=== PATIENT | male | born 1960 | race Caucasian/White ===

== ENCOUNTER 2021-02-09 17:26 | Inpatient (IN) | payer BC ==
[~2021-02-09] VITALS: Ht 175.3 cm; Wt 102.5 kg
[~2021-02-09 17:26] MED LIST: AVODART 0.5MG0.5 MG PO; BETASERON0.3 MG SC; CELLCEPT 250MG250 MG PO; CELLCEPT PO; CEPHALEXIN500 M1; CIALIS10 MG; CIPRO 500MG TA500 MG PO; CLARITIN 1010 MG/TAB; CLEOCIN HC150 MG/CAP PO; CORGARD 40M40 MG/TAB PO; DETROL PO; DICLOFENAC PO; FLOMAX PO; NEURONTIN300 MG/CAP PO; NORCO 325 MG-51 TAB PO; REBIF; REBIF44 MCG/0.5 SC; TYLENOL W/COD1 UDTAB; VOLTAREN 75 DR75 MG; ZOLOFT PO
[2021-02-09 18:47] LABS: COLLECTION METHOD CLEAN CATCH
[2021-02-09 18:51] LABS: HEMOGLOBIN 17.9 g/dl (13.5-18.0); MEAN CELL VOLUME 97 fl (80.0-100.0); MEAN CORPUSCULAR HEMOGLOBIN 34 pg (27.0-31.0); MEAN CORPUSCULAR HGB CONC 34 g/dl (33.0-37.0); MEAN PLATELET VOLUME 10.7 fl (7.4-10.4); PLATELET COUNT 155 K/mm3 (130-400); RED BLOOD COUNT 5.35 M/mm3 (4.20-5.60); REDCELL DISTRIBUTION WIDTH-CV 13.7 % (11.5-14.5)
[2021-02-09 18:55] LABS: HEMATOCRIT 52.1 % (42.0-52.0)
[2021-02-09 18:55] LABS: PH 6 (5-8); SQUAMOUS EPITHELIAL None Seen /hpf; URINE APPEARANCE Clear; URINE BACTERIA None Seen /hpf; URINE BILIRUBIN Negative (NEGATIVE); URINE BLOOD Negative (NEGATIVE); URINE COLOR Yellow; URINE GLUCOSE Negative (NEGATIVE); URINE KETONE Negative (NEGATIVE); URINE LEUKOCYTE ESTERASE Negative (NEGATIVE); URINE NITRATE Negative (NEGATIVE); URINE PROTEIN(semi-quant) Negative (NEGATIVE); URINE RBC 0-2 /hpf; URINE UROBILINOGEN Negative (NEGATIVE)
[2021-02-09 19:08] LABS: ALBUMIN 3.8 gm/dL (3.5-5.0); BILIRUBIN,TOTAL 0.6 mg/dL (0.0-1.0); C-REACTIVE PROTEIN 6.6 mg/dL (0.0-0.9); CALCIUM 8.5 mg/dL (8.4-10.2); CREATININE, serum 0.98 (0.66-1.25); POTASSIUM 3.9 mmol/L (3.4-5.0); TOTAL PROTEIN 6.6 gm/dL (6.4-8.2)
[2021-02-09] MEDS ORDERED: PRINIVIL20 MG PO (19:30)
[2021-02-09] MEDS ORDERED: CIALIS5 MG PO (19:31)
[2021-02-09] MEDS ORDERED: CELLCEPT 250MG250 MG PO (19:31)
[2021-02-09] MEDS ORDERED: CEPHALEXIN500 M1 PO (19:32)
[2021-02-09] MEDS ORDERED: ZOLOFT 50MG50 MG PO (19:32)
[2021-02-09] MEDS ORDERED: DETROL LA4 PO (19:33)
[2021-02-09 19:36] LABS: EOSINOPHIL 6 % (0-4); LYMPHOCYTE 11 % (20.0-51.0); NEUTROPHILS 72 % (42.0-75.2); PLATELET ESTIMATE NORMAL (NORMAL)
[2021-02-09] MEDS ORDERED: [UNRECOGNIZED DRUG - OTHER] SQ (19:49)
[2021-02-09] MEDS ORDERED: PRINIVIL40 MG PO (19:49)
[2021-02-09] MEDS ORDERED: CORGARD40 MG PO (19:50)
[2021-02-09] MEDS ORDERED: NEURONTIN300 MG/CAP PO (19:50)
[2021-02-10] VITALS (9 sets, daily range): BP systolic 97–162; BP diastolic 59–91; PULSE 70–92; TEMP 98.7–103.1
--- NOTE | 2021-02-10 04:06 | NUR ---
Took over care for patient at approximately 2230. Patient received PRN [place] once for pain to left leg. Patient also received Acetaminophen for fever over 102.
[2021-02-10 09:14] LABS: HEMATOCRIT 49.5 % (42.0-52.0); HEMOGLOBIN 16.8 g/dl (13.5-18.0); MEAN CELL VOLUME 99 fl (80.0-100.0); MEAN CORPUSCULAR HEMOGLOBIN 34 pg (27.0-31.0); MEAN CORPUSCULAR HGB CONC 34 g/dl (33.0-37.0); MEAN PLATELET VOLUME 11.4 fl (7.4-10.4); PLATELET COUNT 139 K/mm3 (130-400); RED BLOOD COUNT 4.98 M/mm3 (4.20-5.60); REDCELL DISTRIBUTION WIDTH-CV 13.9 % (11.5-14.5)
[2021-02-10 09:25] LABS: CALCIUM 7.7 mg/dL (8.4-10.2); CREATININE, serum 0.98 (0.66-1.25); POTASSIUM 4.1 mmol/L (3.4-5.0)
[2021-02-10 10:26] LABS: BAND 10 % (0-10); EOSINOPHIL 6 % (0-4); LYMPHOCYTE 4 % (20.0-51.0); NEUTROPHILS 73 % (42.0-75.2); PLATELET ESTIMATE NORMAL (NORMAL)
--- NOTE | 2021-02-10 11:30 | NUR ---
Patient has been doing ok this morning. He continues to spike temperatures. The medications don't seem to be helping. Let Dr Domínguez know. Placed ice packs to his left thigh. Encouraged him to keep a sheet on, he keeps adding blankets on. He is eating and drinking without issues. Having pain when ambulating to left thigh but minimal pain when laying in bed. No complaints of nausea. Left thigh is red, swollen and warm to touch. No drainage noted. No other changes at this time. Call kerry mcdowell.
--- NOTE | 2021-02-10 18:00 | NUR ---
Patient is spiking a temperature. His tempt has been staying steady above 102. It is now 103.1. Notified hospitalist. Consult called to Dr Villatoro. Got an order for ibuprofen. Encouraged patient to do deep breathing exercises. Placed new ice to left thigh. Patient had questions about his antibiotics, answered the quesitons I could. Explained giving ibuprofen instead of tylenol. Patient verbalized understanding. No other changes at this time. Call light within reach.
--- NOTE | 2021-02-10 21:45 | NUR ---
PATIENT IS CALM IN BED.DENIES PAIN.DUE MEDS GIVEN.IVFS IN GOOD PROGRESS.PATIENT HAS LOOSE STOOLS.NO OTHE NEEDS AT THIS TIME.
[2021-02-11] VITALS (7 sets, daily range): BP systolic 122–140; BP diastolic 71–97; PULSE 70–78; TEMP 98.4–101.2
--- NOTE | 2021-02-11 05:57 | NUR ---
PATIENT HAD A CALM NIGHT.TEMPERATURE THIS MORN 99.2F.DENIES PAIN.IVFS CONTINUED WITH ANTIBIOTICS.NO OTHER NEEDS ST THIS TIME.
[2021-02-11 07:05] LABS: HEMATOCRIT 46.2 % (42.0-52.0); HEMOGLOBIN 15.6 g/dl (13.5-18.0); MEAN CELL VOLUME 100 fl (80.0-100.0); MEAN CORPUSCULAR HEMOGLOBIN 34 pg (27.0-31.0); MEAN CORPUSCULAR HGB CONC 34 g/dl (33.0-37.0); MEAN PLATELET VOLUME 11.4 fl (7.4-10.4); PLATELET COUNT 122 K/mm3 (130-400); RED BLOOD COUNT 4.63 M/mm3 (4.20-5.60); REDCELL DISTRIBUTION WIDTH-CV 13.9 % (11.5-14.5)
[2021-02-11 07:08] LABS: CALCIUM 7.6 mg/dL (8.4-10.2); CREATININE, serum 0.98 (0.66-1.25); POTASSIUM 3.8 mmol/L (3.4-5.0)
[2021-02-11 07:57] LABS: BAND 14 % (0-10); EOSINOPHIL 5 % (0-4); LYMPHOCYTE 6 % (20.0-51.0); NEUTROPHILS 68 % (42.0-75.2)
[2021-02-11 07:58] LABS: PLATELET ESTIMATE DECREASED (NORMAL)
--- NOTE | 2021-02-11 08:33 | NUR ---
Patient in bed resting. Alert and oriented x 3. Assessment complete. Denies pain at this time. IV fluids and antibiotics infusing per orders. Redness and warmth to left thigh noted. Patient states no difference from previous days. Denies further needs at this time.
[2021-02-11 10:12] LABS: PATHOLOGY DIFF REVIEW OK +
--- NOTE | 2021-02-11 13:40 | NUR ---
Initial visit; Patient thanked Patient Safety Manager for looking in on him and offering God's blessings and to keep him in her prayers.
--- NOTE | 2021-02-11 14:35 | NUR ---
public health social worker met with patient to discuss discharge plan. Patient lives at home with (Hanna [phone]). Patient states he is independent with his activities of daily living. Patient states his primary care is Dr. Stern and reports no trouble affording medications. Patient states he believes he has made advanced directives with . Patient plans to discharge home. *Discharge plan: Home with spouse*
--- NOTE | 2021-02-11 18:16 | NUR ---
Patient doing well throughout the day. Has been up ambulating in room. Spouse at bedside throughout the day. Denies pain at this time. Motrin given for temp around noon. Denies further needs at this time. Fluids and antibiotics infusing per orders. 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
--- NOTE | 2021-02-11 19:52 | NUR ---
PATIENT IN BED RESTING. ON NO APPARENT DISTRESS. PATIENT DENIES ANY PAIN. CALL IN REACH ADVICE TO CALL WITH ANY ISSUES. WILL CONTINUE TO MONITOR
[2021-02-12 00:41] VITALS: BP 140/83; PULSE 77; TEMP 101.2
--- NOTE | 2021-02-12 01:10 | NUR ---
PATIENT TEMP 101.2 PA HOSPITALIST MADE AWARE. TYLENOL 650 MG GIVEN, ENCOURAGE FLUID. WILL CONTINUE TO MONITOR.
[2021-02-12 04:05] VITALS: BP 128/78; PULSE 68; TEMP 98.1
[2021-02-12 07:10] LABS: HEMATOCRIT 42.8 % (42.0-52.0); HEMOGLOBIN 14.3 g/dl (13.5-18.0); MEAN CELL VOLUME 99 fl (80.0-100.0); MEAN CORPUSCULAR HEMOGLOBIN 33 pg (27.0-31.0); MEAN CORPUSCULAR HGB CONC 33 g/dl (33.0-37.0); MEAN PLATELET VOLUME 10.9 fl (7.4-10.4); PLATELET COUNT 140 K/mm3 (130-400); RED BLOOD COUNT 4.33 M/mm3 (4.20-5.60); REDCELL DISTRIBUTION WIDTH-CV 13.6 % (11.5-14.5)
[2021-02-12 07:26] LABS: CALCIUM 7.5 mg/dL (8.4-10.2); CREATININE, serum 0.94 (0.66-1.25); POTASSIUM 3.8 mmol/L (3.4-5.0)
[2021-02-12 07:52] LABS: BAND 14 % (0-10); EOSINOPHIL 2 % (0-4); LYMPHOCYTE 11 % (20.0-51.0); NEUTROPHILS 71 % (42.0-75.2); PLATELET ESTIMATE NORMAL (NORMAL)
[2021-02-12 07:59] LABS: C-REACTIVE PROTEIN 20.6 mg/dL (0.0-0.9)
[2021-02-12 08:18] VITALS: BP 132/76; PULSE 87; TEMP 100.4
--- NOTE | 2021-02-12 08:18 | NUR ---
Paty andrews notified of temp 100.4
--- NOTE | 2021-02-12 08:20 | NUR ---
Patient in bed resting. Alert and oriented x 3. Assessment complete. Motrin given for temp. Increased redness and swelling noted to LLE. Patient states he is feeling sore this morning and having muscle spasms. Patient denies further needs at this time.
[2021-02-12 11:29] VITALS: BP 133/89; PULSE 62; TEMP 97.7
--- NOTE | 2021-02-12 14:48 | NUR ---
Patient back from CT by wheelchair.
[2021-02-12 16:08] VITALS: BP 168/94; PULSE 63; TEMP 99.1
--- NOTE | 2021-02-12 19:10 | NUR ---
Patient doing well, spouse at bedside. Patient states frustration about situation this afternoon. States he feels like if his infection is not progressing and only getting worse. Educated patient on cellulits. Denies additional needs at this time. Reported off to security shift supervisor.
[2021-02-12 20:08] VITALS: BP 163/88; PULSE 75; TEMP 99.6
[2021-02-13] VITALS: BP 149/83; PULSE 72; TEMP 100
[2021-02-13 04:52] VITALS: BP 155/89; PULSE 65; TEMP 98.4
--- NOTE | 2021-02-13 06:30 | NUR ---
Patient and his had a lot of questions at the start of the shift about what can geena done to get him out of here faster. Discussed what has been done for the patient and what is being done for him. Discussed the antibiotics he is taking and explained how cellulitis is different from and abscess. They talked about trying to go to , explained that is something to talk about with the Doctor but that it wouldn't be a transfer unless his condition changed. They verbalized understanding. Patients left thigh continues to be red and swolled, warm to the touch. Offered to get ice to the thight but he did not want it. [place] given once at bedtime. No complaints of nausea. Encouraged patient to elevate his left legs on pillows. No other changes at this time. Call light within reach.
[2021-02-13 07:35] VITALS: BP 138/101; BP 138/81; PULSE 109; PULSE 66; TEMP 98.3; TEMP 98.7
[2021-02-13 08:13] LABS: BASO % 0.2 % (0.0-2.0); EOS # 0.5 (0.0-0.7); EOS % 3.3 % (0-4.0); GRAN # 12.6 (1.4-6.5); GRAN % 84.2 % (42.2-75.2); HEMATOCRIT 42.8 % (42.0-52.0); HEMOGLOBIN 14.7 g/dl (13.5-18.0); LYMPH # 0.6 (1.2-3.4); LYMPH % 3.7 % (20.0-51.0); MEAN CELL VOLUME 99 fl (80.0-100.0); MEAN CORPUSCULAR HEMOGLOBIN 34 pg (27.0-31.0); MEAN CORPUSCULAR HGB CONC 34 g/dl (33.0-37.0); MEAN PLATELET VOLUME 11.3 fl (7.4-10.4); MONO # 1.2 (0.1-0.6); MONO % 7.7 % (1.7-9.3); PLATELET COUNT 171 K/mm3 (130-400); RED BLOOD COUNT 4.34 M/mm3 (4.20-5.60); REDCELL DISTRIBUTION WIDTH-CV 13.6 % (11.5-14.5)
[2021-02-13 08:28] LABS: CALCIUM 7.8 mg/dL (8.4-10.2); CREATININE, serum 0.93 (0.66-1.25); POTASSIUM 3.5 mmol/L (3.4-5.0)
[2021-02-13 12:23] VITALS: BP 156/86; PULSE 66; TEMP 99.4
[2021-02-13 17:13] VITALS: BP 160/80; PULSE 67; TEMP 99.9
[2021-02-13 19:52] VITALS: BP 150/77; PULSE 66; TEMP 99.5
--- NOTE | 2021-02-13 22:00 | NUR ---
Pt has been resting comfortably. Pain rated 5/10. Lortab was given.Will continue to monitor.
[2021-02-14 03:24] VITALS: BP 141/75; PULSE 61; TEMP 98.6
[2021-02-14 07:26] LABS: BASO % 0.3 % (0.0-2.0); EOS # 0.5 (0.0-0.7); EOS % 3.6 % (0-4.0); GRAN # 12.4 (1.4-6.5); GRAN % 84.4 % (42.2-75.2); HEMATOCRIT 43.3 % (42.0-52.0); HEMOGLOBIN 14.6 g/dl (13.5-18.0); LYMPH # 0.5 (1.2-3.4); LYMPH % 3.3 % (20.0-51.0); MEAN CELL VOLUME 98 fl (80.0-100.0); MEAN CORPUSCULAR HEMOGLOBIN 33 pg (27.0-31.0); MEAN CORPUSCULAR HGB CONC 34 g/dl (33.0-37.0); MEAN PLATELET VOLUME 10.7 fl (7.4-10.4); MONO # 1.1 (0.1-0.6); MONO % 7.1 % (1.7-9.3); PLATELET COUNT 215 K/mm3 (130-400); REDCELL DISTRIBUTION WIDTH-CV 13.5 % (11.5-14.5)
[2021-02-14 07:31] LABS: CREATININE, serum 0.94 (0.66-1.25); POTASSIUM 3.8 mmol/L (3.4-5.0)
[2021-02-14 08:25] VITALS: BP 141/92; PULSE 66; TEMP 99.2
--- NOTE | 2021-02-14 08:30 | NUR ---
PATIENT ALERT AND ORIENTED X4. PATIENT SITTING UP IN BED AWAITING BREAKFAST. PATIENT LEFT LEG IS MORE RED AND SWOLLEN THAN YESTERDAY. DOCTORS NOTIFIED AND ANTIBIOTICS CONTINUED PER ORDERS. PATIENT HAS IV TO LEFT HAND AND IS ON CONTACT FOR MRSA. PATIENT DENIES PAIN OR FURTHER NEEDS AT THIS TIME. CALL LIGHT WITHIN REACH. HEAD TO TOE ASSESSMENT COMPLETE.
--- NOTE | 2021-02-14 10:00 | NUR ---
PATIENT HELPED TO SHOWER AND LINENS CHANGED. LEG ELEVATED ON PILLOWS AND ICE PLACED. DOCTORS ROUNDING.
[2021-02-14 12:25] VITALS: BP 159/89; PULSE 64; TEMP 99.3
--- NOTE | 2021-02-14 13:13 | NUR ---
PATIENTS BROUGHT HIM LUNCH.
[2021-02-14 16:55] VITALS: BP 120/79; PULSE 66; TEMP 99.2
--- NOTE | 2021-02-14 18:23 | NUR ---
TO BRING PATIENT DINNER
[2021-02-14 19:43] VITALS: BP 146/78; PULSE 71; TEMP 100
[2021-02-14 23:47] VITALS: BP 150/82; PULSE 71; TEMP 101.6
--- NOTE | 2021-02-15 00:04 | NUR ---
Assessemnt done and completed, alert and oriented ,denies pain. is at the bedside during assessment, Legs is red and swollen. Reported that the redness is getting bigger. At midnihgt patient had a fever of 101.0 Tylenol 325 is givem. Patient complains of being itchy. RN didn't notice it in the 1899 assessment. Patient face is red and his back has rashes that he complained being itchy. Will continue to monitor and will notify the PA Kylah.
[2021-02-15 03:48] VITALS: BP 159/93; PULSE 67; TEMP 98.6
[2021-02-15 06:31] LABS: HEMATOCRIT 45.3 % (42.0-52.0); HEMOGLOBIN 15.5 g/dl (13.5-18.0); MEAN CELL VOLUME 97 fl (80.0-100.0); MEAN CORPUSCULAR HEMOGLOBIN 33 pg (27.0-31.0); MEAN CORPUSCULAR HGB CONC 34 g/dl (33.0-37.0); MEAN PLATELET VOLUME 10.7 fl (7.4-10.4); PLATELET COUNT 254 K/mm3 (130-400); RED BLOOD COUNT 4.68 M/mm3 (4.20-5.60); REDCELL DISTRIBUTION WIDTH-CV 13.4 % (11.5-14.5)
[2021-02-15 06:42] LABS: CALCIUM 8.3 mg/dL (8.4-10.2); CREATININE, serum 0.87 (0.66-1.25); POTASSIUM 3.9 mmol/L (3.4-5.0)
[2021-02-15 08:48] LABS: BAND 11 % (0-10); EOSINOPHIL 3 % (0-4); LYMPHOCYTE 4 % (20.0-51.0); NEUTROPHILS 82 % (42.0-75.2); PLATELET ESTIMATE NORMAL (NORMAL)
[2021-02-15 08:55] VITALS: BP 132/76; PULSE 61; TEMP 97.8
--- NOTE | 2021-02-15 10:52 | NUR ---
Patient to radiology by
[2021-02-15 11:55] VITALS: BP 145/87; PULSE 61; TEMP 97.9
--- NOTE | 2021-02-15 14:32 | NUR ---
Social met with patient follow up on discharge plan. Patient is planning on still returning home and feels comfortable with this plan. * Discharge plan: Home*
[2021-02-15 15:21] VITALS: BP 151/81; PULSE 60; TEMP 97.9
--- NOTE | 2021-02-15 18:47 | NUR ---
Patient doing well throughout the day, states left thigh looks better than previous days. Radiology aspirated fluid from left thigh today. Patient denies pain throughout the day. Has been up independently with steady gait. Showered this afternoon. Patient denies furhter needs at this time. Will report off to gluer machine operator.
[2021-02-15 19:21] VITALS: BP 149/77; PULSE 62; TEMP 97.8
[2021-02-15 23:38] VITALS: BP 142/71; PULSE 94; TEMP 97
--- NOTE | 2021-02-15 23:43 | NUR ---
Patient called me and said that he has generalized itchiness. He had Zozyn hung from previous shift at 1900 that supposed to get done at 2300. When RN checke him he has rashes that looks so red again and he is scratching it. RN stop the Zosyn and Kylah get notified. She said to hold the Zozyn. Benadryl administered. Patient got the melatonin as well. Continue to follow.
[2021-02-16] VITALS (7 sets, daily range): BP systolic 139–183; BP diastolic 71–99; PULSE 50–80; TEMP 97.2–98.7
[2021-02-16 07:00] LABS: HEMATOCRIT 40.5 % (42.0-52.0); HEMOGLOBIN 13.7 g/dl (13.5-18.0); MEAN CELL VOLUME 98 fl (80.0-100.0); MEAN CORPUSCULAR HEMOGLOBIN 33 pg (27.0-31.0); MEAN CORPUSCULAR HGB CONC 34 g/dl (33.0-37.0); MEAN PLATELET VOLUME 10.6 fl (7.4-10.4); PLATELET COUNT 280 K/mm3 (130-400); RED BLOOD COUNT 4.13 M/mm3 (4.20-5.60); REDCELL DISTRIBUTION WIDTH-CV 13.5 % (11.5-14.5)
[2021-02-16 07:11] LABS: CALCIUM 8.3 mg/dL (8.4-10.2); CREATININE, serum 0.92 (0.66-1.25); POTASSIUM 3.8 mmol/L (3.4-5.0)
[2021-02-16 07:40] LABS: BAND 12 % (0-10); EOSINOPHIL 5 % (0-4); LYMPHOCYTE 8 % (20.0-51.0); NEUTROPHILS 70 % (42.0-75.2); PLATELET ESTIMATE NORMAL (NORMAL)
--- NOTE | 2021-02-16 08:00 | NUR ---
Patient sitting up in bed eating breakfast. A&Ox3. VSS. IV CDI. Denies pain, reports some discomfort in left leg. Left upper leg warm to touch, whole leg red. Independent in room. Contact precautions in place. No further needs expressed. Call light within reach
--- NOTE | 2021-02-16 18:17 | NUR ---
Patient had an uneventful day. No reports of pain. Has been ambulating in bed to help with swelling in left leg. Reddness to left leg, left upper leg minimally warm, no pain with palpation. VSS, BP hypertensive, doctor aware. IV CDI. Contact precautions in place. No further needs expressed from the patient. Call light within reach
--- NOTE | 2021-02-16 21:30 | NUR ---
PT INDEPENDENT IN ROOM. HAS EDEMATOUS LEFT LEG FROM HIP TO ANKLE, THIGH BLANCHES AND IS RED/WARM TO TOUCH. PT HAS LFT LEG ELEVATED ON PILLOWS AND BELIEVES THIS HAS HELPED WITH THE SWELLING. TAKES HS MEDS WITHOUT PROBLEM. SL TO LEFT HAND, FLUSHES WELL. HAS A DIFFUSE RASH TO TRUNK, ARMS AND INTO GROIN AND RT UPPER LEG. DENIES NEED FOR ANTI ITCH MED TONIGHT. DENIES PAIN.
--- NOTE | 2021-02-16 23:00 | NUR ---
IV CIPRO CONNECTED AND INFUSING WITHOUT PROBLEM.
--- NOTE | 2021-02-17 01:10 | NUR ---
ANTIBIOTIC COMPLETE, DENIES ITCHING.
[2021-02-17 03:47] VITALS: BP 139/58; PULSE 74; TEMP 98.2
[2021-02-17 06:33] LABS: HEMATOCRIT 42.9 % (42.0-52.0); HEMOGLOBIN 14.5 g/dl (13.5-18.0); MEAN CELL VOLUME 99 fl (80.0-100.0); MEAN CORPUSCULAR HEMOGLOBIN 33 pg (27.0-31.0); MEAN CORPUSCULAR HGB CONC 34 g/dl (33.0-37.0); MEAN PLATELET VOLUME 10.5 fl (7.4-10.4); PLATELET COUNT 323 K/mm3 (130-400); RED BLOOD COUNT 4.35 M/mm3 (4.20-5.60); REDCELL DISTRIBUTION WIDTH-CV 13.7 % (11.5-14.5)
[2021-02-17 06:44] LABS: CALCIUM 8.6 mg/dL (8.4-10.2); CREATININE, serum 1.02 (0.66-1.25); POTASSIUM 4.2 mmol/L (3.4-5.0)
[2021-02-17 07:01] LABS: BAND 5 % (0-10); EOSINOPHIL 4 % (0-4); LYMPHOCYTE 12 % (20.0-51.0); METAMYELOCYTE 1 % (0-0); NEUTROPHILS 73 % (42.0-75.2); PLATELET ESTIMATE NORMAL (NORMAL)
[2021-02-17 07:44] VITALS: BP 142/85; PULSE 56; TEMP 98.1
--- NOTE | 2021-02-17 08:00 | NUR ---
Patient sitting up in the recliner eating breakfast. A&Ox4. VSS. IV CDI. Denies pain and discomfort. Reports that left upper thigh looks like a fluid filled pocket has formed again. Warm to touch. Contact precautions in place. 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 No further needs expressed from the patient. Call light within reach
[2021-02-17 11:33] VITALS: BP 130/79; PULSE 55; TEMP 98.2
[2021-02-17 16:29] VITALS: BP 168/87; PULSE 52; TEMP 98.2
--- NOTE | 2021-02-17 17:48 | NUR ---
Patient had an abcess on left thigh drained by Dr Santa and tolerated well. Pressure dressing applied. CDI. VSS. New IV site started. A&Ox4. Contact precautions in place. No further needs expressed. Call light within reach
[2021-02-17 19:09] VITALS: BP 142/79; PULSE 58; TEMP 98.4
--- NOTE | 2021-02-17 20:39 | NUR ---
Assessment completed, alert and oriented. Denies pain or SOB. Patient just had his dinner done. Sitting in bed comfortably. Has dressing in his left thigh. Redness and swolleniss looks way better than it was. Tender around the puncture site. Has generalized rashes from previous allergic reactions. Denies itchiness. No further complains. Call light is within reach and will continue to follow.
[2021-02-17 23:44] VITALS: BP 131/79; PULSE 56; TEMP 98.2
[2021-02-18 03:38] VITALS: BP 151/85; PULSE 55; TEMP 97.7
[2021-02-18 07:32] VITALS: BP 142/90; PULSE 59; TEMP 98.1
[2021-02-18 08:01] LABS: HEMATOCRIT 45.5 % (42.0-52.0); HEMOGLOBIN 15.3 g/dl (13.5-18.0); MEAN CELL VOLUME 99 fl (80.0-100.0); MEAN CORPUSCULAR HEMOGLOBIN 33 pg (27.0-31.0); MEAN CORPUSCULAR HGB CONC 34 g/dl (33.0-37.0); MEAN PLATELET VOLUME 10.3 fl (7.4-10.4); PLATELET COUNT 348 K/mm3 (130-400); REDCELL DISTRIBUTION WIDTH-CV 13.4 % (11.5-14.5)
[2021-02-18 08:22] LABS: BAND 10 % (0-10); EOSINOPHIL 14 % (0-4); LYMPHOCYTE 10 % (20.0-51.0); METAMYELOCYTE 1 % (0-0); NEUTROPHILS 59 % (42.0-75.2)
[2021-02-18 08:23] LABS: PLATELET ESTIMATE NORMAL (NORMAL)
[2021-02-18 08:39] LABS: CALCIUM 8.6 mg/dL (8.4-10.2); CREATININE, serum 1.08 (0.66-1.25); POTASSIUM 4.3 mmol/L (3.4-5.0)
[2021-02-18] MEDS ORDERED: CIPRO 500MG TA500 MG PO (09:44)
[2021-02-18] MEDS ORDERED: ZYVOX 600MG600 MG PO (09:45)
[2021-02-18] MEDS ORDERED: NORVASC 5MG5 MG/TAB PO (09:46)
[2021-02-18] MEDS ORDERED: NORCO 325 MG-51 TAB PO (09:47)
[2021-02-18 10:50] VITALS: BP 142/85; PULSE 52; TEMP 98.2
--- NOTE | 2021-02-18 11:56 | NUR ---
geothermal sheet metal worker checked in with patient to address any new concerns with going home. present in room. Patient and had no concerns, just questions for nurse. Relayed questions to patients nurse.
--- NOTE | 2021-02-18 15:20 | NUR ---
Patient doing well throughout the day, showered independently this afternoon. Dressing to left thigh changed, packed per Dr agrawal orders. Educated patient on dressing changes. Patient educated on when to call provider and all new medications. Educated on medication safety. All questions answered. Denies furhter needs at this time. INT to RAC discontinued, catheter tip intact. No further needs at this time. Patient out by wheelchair with surgical staff.
== END 2021-02-18 15:20 | disposition home or self-care (01) | DRG 872 ==
LOC: COL.ER 17:26 → SURG 19:35
PROVIDERS: Emergency Medicine; Internal Medicine; Physician Assistant; ADMIT Student in an Organized Health Care Education/Training Program
PROC: 0J9M3ZZ Drainage of Left Upper Leg Subcutaneous Tissue and Fascia, Percutaneous Approach (ICD-10-PCS; principal; 2021-02-17)
DX: A41.9 Sepsis, unspecified organism (principal); E87.1 Hypo-osmolality and hyponatremia; L03.115 Cellulitis of right lower limb; L02.415 Cutaneous abscess of right lower limb; L02.416 Cutaneous abscess of left lower limb; G35 Multiple sclerosis; F32.9 Major depressive disorder, single episode, unspecified; N32.81 Overactive bladder; I10 Essential (primary) hypertension; Z20.822 Contact with and (suspected) exposure to COVID-19; N40.0 Benign prostatic hyperplasia without lower urinary tract symptoms; L27.0 Generalized skin eruption due to drugs and medicaments taken internally; Z86.14 Personal history of Methicillin resistant Staphylococcus aureus infection; Z89.201 Acquired absence of right upper limb, unspecified level
CPT/HCPCS: 99222-AI; 99231-AI; 99232-AI; 99233-AI; 99239; A9585; J0744; J0878; J1200; J1650; J2543; J2930; J7030; Q9967

== ENCOUNTER → 2021-03-08 | Outpatient (CLI) | payer BC ==
[~2021-03-08] MED LIST changes: +CEPHALEXIN500 M1 PO; +CIALIS5 MG PO; +CORGARD40 MG PO; +DETROL LA4 PO; +NORVASC 5MG5 MG/TAB PO; +PRINIVIL20 MG PO; +PRINIVIL40 MG PO; +ZOLOFT 50MG50 MG PO; +ZYVOX 600MG600 MG PO; +[UNRECOGNIZED DRUG - OTHER] SQ
== END ==
LOC: ZCOL.LAB 16:15
DX: L02.416 Cutaneous abscess of left lower limb (principal)